=== PATIENT | male | born 1960 | race African-American/Black ===

== ENCOUNTER 2020-10-15 22:13 | Emergency (ER) | payer MEDICAID ==
[~2020-10-15] VITALS: Ht 175.3 cm; Wt 73.0 kg
[2020-10-15] MEDS ORDERED: TETRACAINE 0.5% OPHTH DROPS 4ML RIGHTEYE ONE (23:15)
[2020-10-15] MEDS ORDERED: HYDROCODONE/ACETAMINOPHEN 5/325MG TABLET PO ONE (23:15)
[2020-10-15] MEDS ORDERED: FLUORESCEIN SODIUM 1MG/STRIP RIGHTEYE ONE (23:15)
[2020-10-15 23:17] VITALS: BP 200/100
[2020-10-16] MEDS ORDERED: HYDR-4001 MT (00:10)
[2020-10-16] MEDS ORDERED: POLY10DR EACHEYE (00:14)
[2020-10-16] MEDS ORDERED: DEPER5 MT (00:14)
[2020-10-16] MEDS ORDERED: DIVALPROEX SODIUM 250MG ER TABLET PO ONE (00:15)
[2020-10-16] MEDS ORDERED: DIVALPROEX SODIUM 250MG ER TABLET PO SCH (09:00)
== END 2020-10-16 01:14 | disposition home or self-care (01) ==
LOC: EDBD 22:13 → EDUNIT# 22:13 → ER 22:13
DX: H57.11 Ocular pain, right eye (principal); I10 Essential (primary) hypertension; Z88.2 Allergy status to sulfonamides; Z86.59 Personal history of other mental and behavioral disorders
CPT/HCPCS: 99284; Z7610

== ENCOUNTER 2022-06-06 07:02 | Emergency (ER) | payer MEDICAID, OTHER ==
[~2022-06-06] VITALS: Ht 167.6 cm; Wt 78.0 kg
[~2022-06-06 07:02] MED LIST: DEPER5 MT; HYDR-4001 MT; POLY10DR EACHEYE
[2022-06-06 07:05] VITALS: BP 148/86
[2022-06-06] MEDS ORDERED: ACETAMINOPHEN 500MG TABLET PO ONE (07:15)
[2022-06-06] MEDS ORDERED: TOPUD PO (08:41)
== END 2022-06-06 09:04 | disposition home or self-care (01) ==
LOC: ER 07:02
DX: M79.672 Pain in left foot (principal); I10 Essential (primary) hypertension; Z91.81 History of falling; M20.12 Hallux valgus (acquired), left foot; Z88.8 Allergy status to other drugs, medicaments and biological substances
CPT/HCPCS: 73630; 99283